=== PATIENT | female | born 1990 | race Two or more races ===

== ENCOUNTER 2016-11-09 22:12 | Emergency (ER) | payer OTHER ==
[~2016-11-09] VITALS: Ht 170.2 cm; Wt 70.0 kg
[2016-11-09 23:00] LABS: HCG UR OBC PASS
[2016-11-09 23:04] LABS: HEMOGLOBIN 12.2 g/dL (11.7-16.4)
[2016-11-09 23:16] LABS: ASPARTATE AMINO TRANSFERASE 16 U/L (15-37); BLOOD UREA NITROGEN 11 mg/dL (7-18)
[2016-11-10 01:08] VITALS: BP 102/61
== END 2016-11-10 01:36 | disposition home or self-care (01) ==
LOC: ED 23:59
DX: K29.00 Acute gastritis without bleeding (principal); Z88.1 Allergy status to other antibiotic agents
CPT/HCPCS: 36415; 76700; 80053; 81001; 81025; 83690; 85025